=== PATIENT | female | born 1950 | race Caucasian/White ===

== ENCOUNTER → 2019-04-11 13:29 | Outpatient (POV) | payer MEDICARE, OTHER, SELFPAY | PROVIDERS: Visit Provider Dermatology | DX: Z00.00 Encounter for general adult medical examination without abnormal findings (principal) ==

== ENCOUNTER → 2019-05-02 14:28 | Outpatient (POV) | payer MEDICARE, OTHER, SELFPAY | PROVIDERS: Visit Provider Dermatology | DX: Z00.00 Encounter for general adult medical examination without abnormal findings (principal) ==

== ENCOUNTER → 2019-07-11 14:20 | Outpatient (POV) | payer MEDICARE, OTHER, SELFPAY | PROVIDERS: Visit Provider Dermatology | DX: Z00.00 Encounter for general adult medical examination without abnormal findings (principal) ==

== ENCOUNTER → 2020-04-09 10:55 | Outpatient (POV) | payer MEDICARE, OTHER, SELFPAY | PROVIDERS: PCP Family Medicine; Visit Provider Dermatology | DX: Z00.00 Encounter for general adult medical examination without abnormal findings (principal) ==

== ENCOUNTER → 2022-06-30 12:33 | Outpatient (POV) | payer MEDICARE, OTHER, SELFPAY | PROVIDERS: Visit Provider Dermatology | DX: Z00.00 Encounter for general adult medical examination without abnormal findings (principal) ==

== ENCOUNTER → 2022-09-18 15:00 | Outpatient (CLI) | payer MEDICARE, OTHER, SELFPAY ==
[2022-09-18 18:59] LABS: Alanine Aminotransferase 26 U/L (12-78); Albumin/Globulin Ratio 1.4 (1.1-1.8); Alkaline Phosphatase 104 U/L (38-126); Anion Gap 12.8 mEq/L (5-15); Aspartate Amino Transferase 43 U/L (14-36); Bilirubin,Total 0.8 mg/dl (0.2-1.3); Blood Urea Nitrogen 26 mg/dl (7-17); Calcium 8.2 mg/dl (8.4-10.2); Carbon Dioxide 30 mmol/L (22.0-30.0); Chloride 100 mmol/L (98-107); Estimated Glomerular Filt Rate 62 ml/min (>60); GFR (African American) 75 ML/MIN (>60); Globulin 2.8 g/dL (1.3-3.2); Glucose 208 mg/dl (74-100); Potassium 3.8 mmoL/L (3.5-5.1); Sodium 139 mmol/L (136-145); Total Protein,Serum 6.8 g/dl (6.3-8.2)
== END ==
PROVIDERS: PCP Family Medicine; Visit Provider Family Medicine
DX: E11.9 Type 2 diabetes mellitus without complications (principal); Z79.84 Long term (current) use of oral hypoglycemic drugs
CPT/HCPCS: 80053

== ENCOUNTER → 2022-09-25 14:14 | Outpatient (CLI) | payer MEDICARE, OTHER, SELFPAY ==
--- NOTE | 2022-09-25 14:14 | CT_ITS ---
FINAL REPORT TECHNIQUE: Axial images were obtained from the lung apex to the mid abdomen by computed tomography. This study was performed with techniques to keep radiation doses as low as reasonably achievable (ALARA). Individualized dose reduction techniques using automated exposure control or adjustment of mA and/or kV according to the patient's size were employed. CLINICAL HISTORY: lung cancer screening former smoker quit 17 years ago 1.5ppd when smoking FINDINGS: CHEST CT LOW DOSE CTDI vol (mGy): 2.90 DLP (mGy-cm): 80.73 There is no axillary adenopathy. There is no hilar or mediastinal adenopathy. There is severe coronary artery calcified plaque disease with prior CABG. The heart is normal in size. There is no pericardial or pleural effusion. Lung window images demonstrate no suspicious infiltrate or nodule. Limited images of the upper abdomen are unremarkable. IMPRESSION: Lung RADS category 1. Recommend 12 month follow-up low-dose chest CT. Reviewed, Interpreted and Dictated by Lorin Ortiz MD Transcribed by Windy Chery Authenticated and [facility]
== END ==
PROVIDERS: PCP Family Medicine; Visit Provider Family Medicine
DX: Z87.891 Personal history of nicotine dependence (principal); Z12.2 Encounter for screening for malignant neoplasm of respiratory organs
CPT/HCPCS: 71271

== ENCOUNTER → 2022-12-18 23:59 | Outpatient (CLI) | payer MEDICARE, OTHER, SELFPAY ==
[2022-12-18 19:16] LABS: Alanine Aminotransferase 26 U/L (12-78); Albumin Level 3.9 g/dl (3.5-5.0); Albumin/Globulin Ratio 1.4 (1.1-1.8); Alkaline Phosphatase 103 U/L (38-126); Anion Gap 10.9 mEq/L (5-15); Aspartate Amino Transferase 30 U/L (14-36); Blood Urea Nitrogen 18 mg/dl (7-17); Calcium 8.2 mg/dl (8.4-10.2); Carbon Dioxide 33 mmol/L (22.0-30.0); Chloride 96 mmol/L (98-107); Estimated Glomerular Filt Rate 71 ml/min (>60); GFR (African American) 85 ML/MIN (>60); Globulin 2.8 g/dL (1.3-3.2); Glucose 155 mg/dl (74-100); Potassium 3.9 mmoL/L (3.5-5.1); Sodium 136 mmol/L (136-145); Total Protein,Serum 6.7 g/dl (6.3-8.2)
== END ==
PROVIDERS: PCP Family Medicine; Visit Provider Family Medicine
DX: E11.9 Type 2 diabetes mellitus without complications (principal); E78.5 Hyperlipidemia, unspecified; Z79.84 Long term (current) use of oral hypoglycemic drugs
CPT/HCPCS: 80053; 84443

== ENCOUNTER 2025-03-13 10:57 | Outpatient (CLI) | payer MEDICARE, OTHER, SELFPAY ==
--- OUTSIDE RECORDS SUMMARY | 2025-01-18 13:30 | XMS_ITS | Encounter Summary ---
Author Organization [place] [address] Care Team Providers Care Marine Tower Operator Name Role Phone Christianne Angel Primary Care Provider [phone] Yogi Torres MD Unavailable [phone] Robert Renee MD Unavailable Unavailable Reason for Referral * Ultrasound (Routine) - Pending Review Specialty Diagnoses / Procedures Referred By Contac t Referred To Contact Radiology Diagnoses Post-menopausal bleeding Procedures US PELVIS AND TRANSVAGINAL NON OB COMPLETE Naz Iverson MD [address] [place] [address] Phone: tel: fax: Referral ID Status Reason Start Date Expiration Date V isits Requested Visits Authorized [id number] Pending Review 01/18/2025 01/18/2026 1 1 Reason for Visit * Reason Comments New Patient vaginal bleeding wit h pessary Encounter Details Date Type Department Care Team (Late st Contact Info) Description 01/18/2025 1:30 PM EDT Office Visit [facility] [address] [address] Naz Iverson MD [address] [place] [id number] Post-menopausal bleeding (Primary Dx); Vaginal erosion secondary to pessary use, initial encounter; Female cystocele Social History Tobacco Use Types Packs/Day Years Used Date Smoking Tobacco: Former Cigarettes Q uit: 03/15/2005 Smokeless Tobacco: Never Tobacco Cessation:Counseling Given: Not Answered Alcohol Use Standard Drinks/Week Comments No 0 (1 standard drink = 0.6 oz pur e alcohol) Comments No Sex and Gender Information Value Date Recorded Sex Assigned at Not on file Legal Sex Female 7:06 AM EDT Gender Identity Not on file Sexual Orientation Not on file documented as of this encounter Last Filed Vital Signs Vital Sign Reading Time Taken Comments Blood Pressure - - Pulse 67 01/18/2025 1:19 PM EDT Temperature - - Respiratory Rate - - Oxygen Saturation 98% 01/18/2025 1:19 PM EDT Inhaled Oxygen Concentration - - Weight 69.7 kg (153 lb 9.6 oz) 01/18/2025 1:19 P M EDT Height 154.9 cm (5' 1 ) 01/18/2025 1:19 PM EDT Body Mass Index 29.02 01/18/2025 1:19 PM EDT documented in this encounter Progress Notes * Naz Iverson MD - 01/18/2025 1:30 PM EDT Images from the original note were not included. New Patient Shena Le 1950 Assessment: Shena Le is a very pleasant 74 y.o. woman who presents today with: Post-menopausal bleeding Vaginal erosion Stage II Pelvic Organ Prolapse I reviewed with her my exam findings and discussed the options for management as follows: PMB Likely secondary to vaginal erosion noted on exam today, but cannot r/o uterine source as well - TVUS ordered to assess endometrial stripe Vaginal erosion Pessary holiday Will hold off on nightly estrogen due to her significant cardiac history. May consider initiating if erosion is still present at f/u Stage II POP Currently managed with #2 ring with support pessary. Due to erosion, likely will need to reduce size to #1 ring at f/u RTO in 2 weeks with Jessica Morris PA-C for repeat exam and pessary re-fitting Portions of this note were dictated and therefore may contain job superintendent errors. Patient's exam findings and plan of care were communicated with Christianne Angel. Thank you for allowing me to participate in this patient's care! Naz Iverson MD, FACOG, [facility] Division of Urogynecology and Pelvic Reconstructive Surgery [address] [place] [address] [email or web address] 01/18/25 1:54 PM HPI: Patient's Chief complaint in her own words: bleeding with pessary Patient is a 74 y.o. old female who is referred by for evaluation of incontinence and prolapse as aconsultation with Dr. Iverson today. Patient is on plavix for h/o bypass. Has been managing pessary at home, removing monthly. Recently has noticed increased discharge and light bleeding. Most recent A1c: Lab Results Component Value Date HGBA1C 7.2 (H) 05/11/2024 Bladder control problems: Do you leak urine with cough, sneeze, laugh or exercise? yes If you have the urge to pee, do you leak trying to get to the bathroom? no Do you have difficulty emptying bladder? no Prior treatments for leakage of urine: none Prolapse/vaginal support problems: Do you have the feeling of a vaginal bulge or pressure/heaviness in the vagina? yes Vaginal bleeding? yes has pessary in place Bowel Problem(s): Do you have constipation? no Do you have to push on the vagina to complete a bowel movement? no Do you leak stool? no Colonoscopy up to date? yes cologuard negative Sexual History: Are you sexually active? no Do you have pain with sex? N/A BARMAN History: Number of vaginal deliveries: 0 Of these, number delivered by forceps or vacuum: 0 Number of C-sections: 0 Have you ever had an abnormal Pap-smear? yes, cone biopsy Urology History: Both kidneys present: yes Both functioning: yes History of kidney stones: yes Gynecology-specific Surgical History: Hysterectomy: no Oophorectomy: no Salpingectomy (Fallopian tubes removed): no Prolapse surgery: no Vaginal surgery: Yes, cone biopsy Mesh placed: no Pertinent Medical/Family History: Personal or Family history of breast cancer? no If yes, who: na Personal or Family history of ovarian cancer? no If yes, who: na Personal or Family history of blood clotting disorder? no If yes, who: na Personal or family history of kidney/bladder cancer? no If yes, who: na Focused ROS Constitutional: denies fevers Vision: denies vision changes GI: denies nausea/vomiting : denies burning with urination Neuro: denies problems with balance or memory Past Medical History: has a past medical history of CAD (coronary artery disease), Diabetes mellitus (HCC), Hyperlipidemia, and Hypertension. Past Surgical History: has a past surgical history that includes Coronary artery bypass graft; Cardiac Catheterization; Upper gastrointestinal endoscopy; and Colonoscopy. Allergies: is allergic to imdur [isosorbide mononitrate] and codeine. Current Medications:has a current medication list which includes the following prescription(s): amlodipine, atorvastatin, carvedilol, cholecalciferol (vitamin d3), clopidogrel, coenzyme q10, cyclobenzaprine, fexofenadine, furosemide, glimepiride, hydrochlorothiazide, lisinopril, metformin, nitroglycerin, pantoprazole, cyanocobalamin, estradiol, and estriol (bulk). Social History: reports that she quit smoking about 19 years ago. Her smoking use included cigarettes. She has never used smokeless tobacco. She reports that she does not drink alcohol and does not use drugs. Family History: family history includes Heart Disease in her father and mother; High Blood Pressurein her father. Objective: Vitals: 01/18/25 1319 Pulse: 67 SpO2: 98% Weight: 153 lb 9.6 oz (69.7 kg) Height: 5' 1 (1.549 m) Physical Exam Constitutional: well-groomed, no distress Gastrointestinal: non-distended Extremities/Hematologic: Non-tender, no erythema or swelling Focused Neurologic Exam: Lumbo-Sacral: Sensory: normal Motor: normal Bulbocavernous reflex/Anal wink: Not Present Perineal sensation: normal A pelvic exam was conducted with the patient's consent. A Table Worker was present for the entire pelvic exam. Table Worker: Kanchan URIBE Pelvic Exam: External genitalia: normal external female genitalia Introitus: atrophic Urethra: normal Urethral hypermobility: Yes FIELD MANAGER negative Vagina: #2 ring with support pessary removed and cleaned. Atrophic vaginal mucosa, grade 2 erosion involving the posterior fornix and proximal posterior vaginal wall with minimal bleeding Uterus: Uterus midline, mobile, normal size Cervix: Poorly visualized, erosion appears to involve posterior lip of cervix Adnexae/Ovaries: Not palpable Labs/Imaging: Lab Results Component Value Date NA 140 11/17/2024 K 4.0 11/17/2024 CL 100 11/17/2024 CO2 30 (H) 11/17/2024 ANIONGAP 10 11/17/2024 CALCIUM 9.4 11/17/2024 GLU 124 (H) 11/17/2024 BUN 15 11/17/2024 CREATININE 0.82 11/17/2024 ALBUMIN 4.3 05/27/2022 PROT 7.2 05/27/2022 LABBILI 1.0 05/27/2022 AST 19 05/27/2022 ALT 20 05/27/2022 ALKPHOS 81 05/27/2022 GFRAFRAM 66 07/10/2021 GFRNONAFRAM 57 (L) 07/10/2021 No results found for this or any previous visit. No results found for this or any previous visit. No results found for this or any previous visit. No results found for this or any previous visit. No results found for this or any previous visit. documented in this encounter Plan of Treatment Upcoming Encounters Date Type Department Care Team (Late st Contact Info) Description 05/16/2025 2:00 PM EDT Office Visit [facility] [address] [address] Diandra Morris PA-C [address] [place] [address] 06/06/2025 1:45 PM EDT Office Visit [facility] [address] [place] [address] Yogi Torres MD [address] [place] [address] 07/11/2025 1:45 PM EDT Office Visit [facility] [address] [place] [id number] Josr Mohamud MD [address] [place], [place] [phone] Scheduled Orders Name Type Priority Associated Diagnoses Orde r Schedule US PELVIS AND TRANSVAGINAL NON OB COMPLETE Imaging Routine Post-menopausal bleeding 1 Occurrences starting 01/18/2025 until 01/18/2026 documented as of this encounter Visit Diagnoses Diagnosis Post-menopausal bleeding- Primary Postmenopausal bleeding Vaginal erosion secondary to pessary use, initial encounter Female cystocele Cystocele, midline documented in this encounter Care Teams Marine Tower Operator Relationship Specialty Start Date End Date Christianne Angel [address] [place], [place] [address]E [address] [place] [address] PCP - General 02/26/11 Yogi Torres MD [address] [place] [address] Physician Internal Medicine-Cardiovascular Disease 02/11/12 Robert Renee MD [address] [place] [address] Physician Internal Medicine-Gastroenterology 10/30/16 documented as of this encounter
--- OUTSIDE RECORDS SUMMARY | 2025-02-07 14:00 | XMS_ITS | Encounter Summary ---
Author Organization [place] [address] Care Team Providers Care Sugar Mixer Name Role Phone Christianne Angel Primary Care Provider Yogi Torres MD Unavailable [phone] Robert Renee MD Unavailable Unavailable Reason for Visit * Reason Comments Follow-up Encounter Details Date Type Department Care Team (Latest Contact Info) Description 02/07/2025 2:00 PM EDT Office Visit [facility] [address] [address] Diandra Morris PA-C [address] [place] [address] Female cystocele (Primary Dx); Pessary maintenance; Encounter for fitting and adjustment of pessary; Vaginal atrophy Social History Tobacco Use Types Packs/Day Years Used Date Smoking Tobacco: Former Cigarettes Q uit: 03/15/2005 Smokeless Tobacco: Never Alcohol Use Standard Drinks/Week Comments No 0 [...] Taken Comments Blood Pressure - - Pulse 68 02/07/2025 1:47 PM EDT Temperature - - Respiratory Rate - - Oxygen Saturation 99% 02/07/2025 1:47 PM EDT Inhaled Oxygen Concentration - - Weight 71.7 kg (158 lb) 02/07/2025 1:47 PM EDT Height - - Body Mass Index 29.85 01/18/2025 1:19 PM EDT documented in this encounter Progress Notes * Diandra Morris PA-C - 02/07/2025 2:00 PM EDT Images from the original note were not included. Diandra Morris PA-C Follow Up Note Shena Flanaganlueter 1950 Assessment: 74 y.o. female with 1. Female cystocele 2. Pessary maintenance 3. Encounter for fitting and adjustment of pessary 4. Vaginal atrophy Plan: 1) Stage 2 POP: We discussed the pathophysiology of pelvic organ prolapse and management options. Vaginal erosion improved on exam, but still mildly present. Okay to proceed with pessary replacement today (will downsize as Dr. Cabral recommended), but recommend more frequent pessary cleanings at home (ideally q 2 weeks and leave it out overnight) and potentially start vaginal estrogen cream if cleared by her process server. -Pessary re-fitting performed today: #1 ring with support placed Call if any issues with urination, bleeding, abnormal vaginal discharge, or pain Discussed proper maintenance/cleaning guidelines; information provided in AVS Patient plans to continue to clean/manage the device herself 2) Vulvo-vaginal atrophy: We discussed the benefits of topical vaginal estrogen for the treatment of vulvo-vaginal atrophy. -Recommend start vaginal estrogen cream to improve vaginal tissue quality but will wait until she clears this with her process server first 3) F/u in 3 months for PC (if tissue looks healthy, can proceed with q 1 year checks if she continues to clean her pessary at home) HPI: Shena Le is a 74 y.o. who is here for f/u s/p pessary holiday Patient had a #2 ring with support pessary removed at her last visit d/t a vaginal erosion seen on exam. She is hopeful to have the pessary replaced today. Past Medical History: Diagnosis Date CAD (coronary artery disease) Diabetes mellitus (HCC) Hyperlipidemia Hypertension Past Surgical History: Procedure Laterality Date CARDIAC CATHETERIZATION COLONOSCOPY CORONARY ARTERY BYPASS GRAFT UPPER GASTROINTESTINAL ENDOSCOPY Family History Problem Relation Age of Onset Heart Disease Mother High Blood Pressure Father Heart Disease Father Colon Cancer Neg Hx Esophageal Cancer Neg Hx Review of Systems: Genitourinary: Denies dysuria, vaginal discharge, vaginal bleeding Focused Physical Exam: Vitals: 02/07/25 1347 Pulse: 68 SpO2: 99% Pelvic Exam: Diet Counselor: Bryanna External genitalia: Normal Introitus: Atrophic Vagina: Atrophic, erosion improved but still present Time-Based Billing Statement: I spent 33 minutes in the care of this patient on this calendar day. Activities performed during this time include: Obtaining or reviewing history (separately obtained), Performing the appropriate exam, Counseling and educating, Referring and communicating with another professional, and Documenting clinical information in the EHR The total time documented above did not include the following activities which were also performed on this calendar day: Procedures [facility] [place] [address] 02/07/2025 4:05 PM * Diandra Morris PA-C - 02/07/2025 2:00 PM EDT Images from the original note were not included. Diandra Morris PA-C Procedure Note: Pessary Fitting Shena Le 1950 Indication: Stage 2 POP We discussed pessary management, insertion, and cleaning/removal guidelines. Patient plans to continue to clean/manage the device herself. She agreed to attempt pessary fitting today. Diet Counselor: Bryanna Procedure: -Vaginal exam performed -Pessary placed: #1 ring with support No expulsion with movement or valsalva Diandra Morris PA-C [facility] [place] [address] 02/07/25 4:05 PM documented in this encounter Miscellaneous Notes * Patient Instructions - Diandra Morris PA-C - 02/07/2025 2:00 PM EDT Images from the original note were not included. Pessary Instructions: This device is inserted to support your prolapse and help with the vaginal bulge/pressure feelings you experience. If you have elected not to manage/clean the device yourself, we recommend you return to our office every 3 months so that we can do this for you. If you have elected to manage/clean the device on your own, we recommend you clean the device ideally every one to two weeks. There are no data-driven standards for frequency of pessary removal and cleaning. Some women take it out every night and reinsert it the following morning. Find what works best for you! -Recommend you remove the pessary before sexual activity unless instructed differently. -Wash in mild soap, rinse thoroughly and air dry. -If the device comes out, reinsert it. This may happen with a bowel movement. Wash in mild soap andrinse well prior to putting it back in. -If the device is uncomfortable, take it out. You can reinsert it right away or leave it out for several hours. Remember to push the pessary back as far as you can get it - you cannot push it too far! -Use a small amount of water-based lubricant (such as KY jelly) to help with insertion. Call to be seen for any of the following: Bloody discharge when removing pessary Foul smelling vaginal discharge Continued irritation from the pessary If you have been instructed to use vaginal estrogen, please use it as directed (it is safe to insert it with the pessary in place). If you have any questions or concerns please call: [facility] Urogynecology Office For non-life threatening emergencies outside of normal business hours, please call the above numberand follow prompts for the flight reservations manager provider. documented in this encounter Plan of Treatment Upcoming Encounters Date Type Department Care Team (Late st Contact Info) Description 05/16/2025 2:00 PM EDT Office Visit [facility] [place] [address] [place] [address] Diandra Morris PA-C [address] [facility] [place] [address] 06/06/2025 1:45 PM EDT Office Visit [facility] [address] [place] [phone] Yogi Torres MD [address] [place] [address] [place] [address] 07/11/2025 1:45 PM EDT Office Visit [facility] [address] [address] Josr Mohamud MD [address] [place] [id number] documented as of this encounter Visit Diagnoses Diagnosis Female cystocele- Primary Cystocele, midline Pessary maintenance Fitting and adjustment of other device Encounter for fitting and adjustment of pessary Fitting and adjustment of other device Vaginal atrophy Postmenopausal atrophic vaginitis documented in this encounter Care Teams Sugar Mixer Relationship Specialty Start Date End Date Christianne Angel [address] [facility] [address] [place] [address] PCP - General 02/26/11 Yogi Torres MD [address] [place] [address] [place] [address] Physician Internal Medicine-Cardiovascular Disease 02/11/12 Robert Renee MD [address] [place] [address] [place] [address] Physician Internal Medicine-Gastroenterology 10/30/16 documented as of this encounter
[2025-03-13 18:38] LABS: Creatinine,Urine Random 94 mg/dL (Not Estab.); Microalbumin/Creatinine Ratio 8.8
[2025-03-13 18:54] LABS: Basophils % 0.1 % (0.1-2.0); Eosinophils # 0.1 Kmm3 (0.0-0.4); Eosinophils % 1.3 % (0.1-12.0); Hematocrit 36.3 % (37.0-47.0); Hemoglobin 11.2 g/dL (12.2-16.2); Immature Granulocytes # 0.02 10^3uL; Immature Granulocytes % 0.3 %; Lymphocytes # 2.3 K/mm3 (0.7-4.5); Mean Corpuscular HGB Conc 30.9 g/dL (31.8-35.4); Mean Corpuscular Hemoglobin 26.7 pg (27.0-31.2); Mean Corpuscular Volume 86.4 fl (81-99); Mean Platelet Volume 11.5 fl (7.4-10.4); Monocytes # 0.5 K/mm3 (0.1-1.0); Monocytes % 7.2 % (1.7-9.3); Neutrophils # 4.6 K/mm3 (1.8-7.8); Neutrophils % 61.1 % (37.0-80.0); Nucleated Red Blood Cells # 0 10^3/uL; Nucleated Red Blood Cells % 0 %; Platelet Count 223 K/mm3 (142-424); Red Cell Distribution Width 17.7 % (11.5-17.5); Red Cell Distribution Width-SD 55.6 fL; White Blood Count 7.5 K/mm3 (4.8-10.8)
[2025-03-13 20:02] LABS: Alanine Aminotransferase 19 U/L (12-78); Albumin Level 4.3 g/dl (3.5-5.0); Albumin/Globulin Ratio 1.5 (1.1-1.8); Alkaline Phosphatase 91 U/L (38-126); Anion Gap 14.4 mEq/L (5-15); Aspartate Amino Transferase 24 U/L (14-36); Bilirubin,Total 1.1 mg/dl (0.2-1.3); Blood Urea Nitrogen 26 mg/dl (7-17); Calcium 9.8 mg/dl (8.4-10.2); Carbon Dioxide 29 mmol/L (22.0-30.0); Chloride 96 mmol/L (98-107); Chol/HDL Ratio 2.9 (1-3.5); Cholesterol 141 mg/dl (140-200); Estimated Glomerular Filt Rate 61 ml/min (>60); GFR (African American) 74 ML/MIN (>60); Globulin 2.9 g/dL (1.3-3.2); Glucose 96 mg/dl (74-100); HDL Cholesterol 49 mg/dl (40-60); Potassium 4.4 mmoL/L (3.5-5.1); Sodium 135 mmol/L (136-145); Total Protein,Serum 7.2 g/dl (6.3-8.2); Triglycerides 90 mg/dl (30-150); VLDL Cholesterol 18 mg/dL (0-40)
[2025-03-13 20:13] LABS: Direct LDL Cholesterol 60.21 mg/dL (100-129)
[2025-03-13 20:34] LABS: Thyroid Stimulating Hormone 0.25 uIU/mL (0.465-4.68)
[2025-03-13 20:44] LABS: HIV Combo NEGATIVE (Negative)
[2025-03-13 20:50] LABS: Hepatitis C Ab Qual. W/ RFX NEGATIVE (Negative)
[2025-03-13 20:53] LABS: Vitamin B12 327 pg/mL (239-931)
--- OUTSIDE RECORDS SUMMARY | 2025-03-14 12:39 | XMS_ITS | Encounter Summary ---
Author Organization [place] [address] Care Team Providers Care Cylinder Press Operator Name Role Phone Christianne Angel Primary Care Provider Yogi Torres MD Unavailable [phone] Robert Renee MD Unavailable Unavailable Encounter Details Date Type Department Care Team (Late st Contact Info) Description 09/03/2010 Orders Only [facility] [place] [address] [address] [place] [address] Kailee Niño MD [address] [place] [address] Social History Tobacco Use Types Packs/Day Years Used Date Smoking Tobacco: Never Assessed Comments Unknown Sex and Gender Information Value Date Recorded Sex Assigned at Not on file Legal Sex Female 7:06 AM EDT Gender Identity Not on file Sexual Orientation Not on file documented as of this encounter Plan of Treatment Upcoming Encounters Date Type Department Care Team (Late st Contact Info) Description 05/16/2025 2:00 PM EDT Office Visit [facility] [place] [address] [place] [address] Diandra Morris PA-C [address] [place] [address] 06/06/2025 1:45 PM EDT Office Visit [facility] [address] [place] [address] Yogi Torres MD [address] [place] [address] [place] [address] 07/11/2025 1:45 PM EDT Office Visit [facility] [address] [place] [address] Josr Mohamud MD [address] [place], [place] [phone] documented as of this encounter Procedures Procedure Name Priority Date/Time Associated Diagnosis Comments ECHO - HISTORICAL Routine 09/03/2010 12: 00 AM EST documented in this encounter Results * ECHO - HISTORICAL (09/03/2010 12:00 AM EST) Anatomical Region Laterality Modality Other 09/03/2010 Narrative 09/23/2011 1:52 AM EST NOTICE: This report was electronically copied on 11/06/2011 from historical data generated by a practice prior to that practice using [facility] for Medical Records. Performing Provider: ELOY Kailee Oviedo MD IMG ECHO ORDERABLES Margaret l Result documented in this encounter Visit Diagnoses Not on filedocumented in this encounter Care Teams Cylinder Press Operator Relationship Specialty Start Date End Date Christianne Angel [address] [place] [address] [address] [facility] [place] [address] PCP - General 02/26/11 Yogi Torres MD [address] [place] [address] [place] [address] Physician Internal Medicine-Cardiovascular Disease 02/11/12 Robert Renee MD [address] [place] [address] [place] [address] Physician Internal Medicine-Gastroenterology 10/30/16 documented as of this encounter
--- OUTSIDE RECORDS SUMMARY | 2025-03-14 12:39 | XMS_ITS | Encounter Summary ---
Author Organization [place] [address] Care Team Providers Care Thermodynamic Physicist Name Role Phone Christianne Angel Primary Care Provider Yogi Torres MD Unavailable [phone] Robert Renee MD Unavailable Unavailable Encounter Details Date Type Department Care Team (Late st Contact Info) Description 09/03/2010 Orders Only [facility] [place] [facility] [address] [place] [address] Kailee Niño MD [address] [place] [address] Social History Tobacco Use Types [...] 2:00 PM EDT Office Visit [facility] [place] [address] [place] [address] Diandra Morris PA-C [address] [place] [address] 06/06/2025 1:45 PM EDT Office Visit [facility] [address] [place] [address] Yogi Torres MD [address] [place] [address] [place] [address] 07/11/2025 1:45 PM EDT Office Visit [facility] [address] [place] [address] Josr Mohamud MD [address] [place], [place] [phone] documented as of this encounter Procedures Procedure Name Priority Date/Time Associated Diagnosis Comments VASCULAR STUDY - HISTORICAL Routine 09/03/2010 12:00 AM EST documented in this encounter Results * VASCULAR STUDY - HISTORICAL (09/03/2010 12:00 AM EST) Anatomical Region Laterality Modality Other 09/03/2010 Narrative 09/23/2011 1:52 AM EST NOTICE: This report was electronically copied on 11/07/2011 from historical data generated by a practice prior to that practice using [facility] for Medical Records. Performing Provider: ELOY Kailee Oviedo MD [place] VASCULAR ORDERABLES Final Result documented in this encounter Visit Diagnoses Not on filedocumented in this encounter Care Teams Thermodynamic Physicist Relationship Specialty Start Date End Date Christianne Angel [address] [place] [address] [address] [facility] [place] [address] PCP - General 02/26/11 Yogi Torres MD [address] [place] [address] [place] [address] Physician Internal Medicine-Cardiovascular Disease 02/11/12 Robert Renee MD [address] [place] [address] [place] [address] Physician Internal Medicine-Gastroenterology 10/30/16 documented as of this encounter
--- OUTSIDE RECORDS SUMMARY | 2025-03-14 12:39 | XMS_ITS | Referral Summary ---
Author Organization [facility] Address [address] [facility] [place] [address] Care Team Providers Care Bag Adjuster Name Role Phone Negrito Angel Primary Care Provider [phone] Allergies Active Allergy Reactions Criticality Noted Date Comments Povidone Iodine Rash 11/13/2015 Codeine Nausea And Vomiting 11/13/2015 Medications metFORMIN (GLUCOPHAGE) 500 MG TABS Take 500 mg by mouth 2 (two) times daily with meals. Active hydrochlorothia zide (HYDRODIURIL) 25 MG TABS Take 25 mg by mouth daily. Active clopidogrel (PLAVIX) 75 MG TABS Take 75 mg by mouth daily. Active furosemide (LASIX) 20 MG TABS Take 20 mg by mouth 2 (two) times daily. Active nitroGLYCERIN (NITROSTAT) 0.4 MG SUBL 0.4 mg by Sublingual route every 5 (five) minutes as needed. Active hydrALAZINE (APRESOLINE) 25 MG TABS Take 25 mg by mouth 2 (two) times daily. Active aspirin 81 MG TBEC Take 81 mg by mouth daily. Active omeprazole (PRILOSEC) 10 MG CPDR Take 20 mg by mouth. Active vitamin D (CHOLECALCIFERO L) 500 UNIT TABS Take 400 Units by mouth daily. Active isosorbide dinitrate (ISORDIL) 30 MG TABS Take 20 mg by mouth 3 (three) times daily. Active co-enzyme Q-10 50 MG CAPS Take 100 mg by mouth daily. Active fexofenadine (ABIGAIL) 180 MG TABS Take 180 mg by mouth daily. Active amoxicillin (AMOXIL) 500 MG CAPS Take 500 mg by mouth every 6 (six) hours. Active Active Problems Problem Noted Date Diagnosed Date Trigger finger of right thum b - RT THUMB A1 BOBBY REL (12-05-15), STAGE I - FULL W/ EFFORT 11/14/2015 Trigger ring finger of right hand - RT RF A1 BOBBY REL (12-05-15), STAGE II - FULL W/ EFFORT 11/14/2015 Social History Tobacco Use Types Packs/Day Years Used Date Smoking Tobacco: Former Smokeless Tobacco: Never Alcohol Use Standard Drinks/Week Comments No 0 (1 standard drink = 0.6 oz pur e alcohol) Comments No Sex and Gender Information Value Date Recorded Sex Assigned at Not on file Legal Sex Female 11:26 AM EST Gender Identity Not on file Sexual Orientation Not on file Occupation Industry Job Start Date Job End Date RETIRED Not on file Not on file Not on file Last Filed Vital Signs Vital Sign Reading Time Taken Comments Blood Pressure 136/67 12/05/2015 11:03 AM EDT Pulse 70 12/05/2015 11:03 AM EDT Temperature 36.7 C (98.1 F) 12/05/2015 8:41 AM EDT Respiratory Rate 18 12/05/2015 11:03 AM EDT Oxygen Saturation 100% 12/05/2015 11:03 AM EDT Inhaled Oxygen Concentration - - Weight 77.1 kg (170 lb) 12/25/2015 10:50 AM EDT Height 154.9 cm (5' 1 ) 12/25/2015 10:50 AM EDT Body Mass Index 32.12 12/25/2015 10:50 AM EDT Functional Status * Are you blind or do you have serious difficulty seeing, even when wearing glasses? Answer Date of Assessment Author No 12/03/2015 9:47 AM EDT Hoa Flores Registered Nurse Mental Status * Because of a physical, mental, or emotional condition, do you have serious difficulty concentrating, remembering, or making decisions? (5 years old or older) Answer Entry Date Author No 12/03/2015 9:47 AM EDT Hoa Flores Registered Nurse Plan of Treatment Not on file Insurance [facility] [place] [address] MEDICARE on file Care Teams Bag Adjuster Relationship Specialty Start Date End Date Negrito Angel [address] [place] [address] PCP - General 11/13/15
--- OUTSIDE RECORDS SUMMARY | 2025-03-14 12:39 | XMS_ITS | Clinical Summary ---
Author Organization [employer] [facility] Address [address] [place] [phone] Phone Care Team Providers Care Wireless Retail Manager Name Role Phone Unavailable Unavailable Conditions or Problems No information available. Medications No information available. Medications Administered No information available. Allergies, Adverse Reactions, Alerts No information available. Results No information available. Plan of Care No information available. Procedures No information available. Vital Signs No information available. Immunizations No information available. Advance Directives No information available.
--- OUTSIDE RECORDS SUMMARY | 2025-03-14 12:39 | XMS_ITS | Encounter Summary ---
Author Organization [place] [address] Care Team Providers Care Glass Ribbon Machine Operator Name Role Phone Christianne Angel Primary Care Provider Yogi Torres MD Unavailable [phone] Robert Renee MD Unavailable Unavailable Encounter Details Date Type Department Care Team (Late st Contact Info) Description 05/23/2009 Orders Only [facility] [place] [address] [place] [address] Rubio Valdovinos MD [address] [place] [address] Social History Tobacco Use Types Packs/Day Years [...] 2:00 PM EDT Office Visit [facility] [place] [address] [place] [address] Diandra Morris PA-C [address] [place] [address] 06/06/2025 1:45 PM EDT Office Visit [facility] [place] [address] [place] [id number] Yogi Torres MD [address] [place] [address] 07/11/2025 1:45 PM EDT Office Visit [facility] [address] [place] [id number] Josr Mohamud MD [address] [place], [place] [phone] documented as of this encounter Procedures Procedure Name Priority Date/Time Associated Diagnosis Comments VASCULAR STUDY - HISTORICAL Routine 05/23/2009 12:00 AM EDT documented in this encounter Results * VASCULAR STUDY - HISTORICAL (05/23/2009 12:00 AM EDT) Anatomical Region Laterality Modality Other 05/23/2009 Narrative 09/23/2011 12:25 PM EST NOTICE: This report was electronically copied on 11/07/2011 from historical data generated by a practice prior to that practice using [facility] [employer] for Medical Records. Performing Provider: KATRIN Rubio Valdovinos MD IMG VASCULAR ORDERABLES Final Re sult documented in this encounter Visit Diagnoses Not on filedocumented in this encounter Care Teams Glass Ribbon Machine Operator Relationship Specialty Start Date End Date Christianne Angel [address] [place] [id number] [address] [facility] [place] [address] PCP - General 02/26/11 Yogi Torres MD [address] [place] [address] [place] [address] Physician Internal Medicine-Cardiovascular Disease 02/11/12 Robert Renee MD [address] [place] [address] [place] [address] Physician Internal Medicine-Gastroenterology 10/30/16 documented as of this encounter
--- OUTSIDE RECORDS SUMMARY | 2025-03-14 12:39 | XMS_ITS | Encounter Summary ---
Author Organization [place] [address] Care Team Providers Care Oracle Database Administrator Name Role Phone Christianne Angel Primary Care Provider Yogi Torres MD Unavailable [phone] Robert Renee MD Unavailable Unavailable Encounter Details Date Type Department Care Team (Late st Contact Info) Description 04/23/2008 Orders Only [facility] [place] [address] [place] [address] Myron Onofre MD [address] [address] Social History Tobacco Use Types Packs/Day Years [...] 2:00 PM EDT Office Visit [facility] [place] [address] [place] [address] Diandra Morris PA-C [address] [place] [address] 06/06/2025 1:45 PM EDT Office Visit [facility] [address] [place] [address] Yogi Torres MD [address] [place] [address] [place] [address] 07/11/2025 1:45 PM EDT Office Visit [facility] [address] [place] [address] Josr Mohamud MD [address] [place] [address] documented as of this encounter Procedures Procedure Name Priority Date/Time Associated Diagnosis Comments VASCULAR STUDY - HISTORICAL Routine 04/23/2008 12:00 AM EDT documented in this encounter Results * VASCULAR STUDY - HISTORICAL (04/23/2008 12:00 AM EDT) Anatomical Region Laterality Modality Other 04/23/2008 Narrative 09/23/2011 12:34 PM EST NOTICE: This report was electronically copied on 11/06/2011 from historical data generated by a practice prior to that practice using [facility] [employer] for Medical Records. Performing Provider: MARY GRACE Myron Onofre MD IMG VASCULAR ORDERABLES Final Result documented in this encounter Visit Diagnoses Not on filedocumented in this encounter Care Teams Oracle Database Administrator Relationship Specialty Start Date End Date Christianne Angel [facility] [address] [place] [address] PCP - General 02/26/11 Yogi Torres MD [address] [place] [address] [place] [address] Physician Internal Medicine-Cardiovascular Disease 02/11/12 Robert Renee MD [address] [place] [address] [place] [address] Physician Internal Medicine-Gastroenterology 10/30/16 documented as of this encounter
--- OUTSIDE RECORDS SUMMARY | 2025-03-14 12:40 | XMS_ITS | Encounter Summary ---
Author Organization [place] [address] Care Team Providers Care Certified Endoscopy Technician Name Role Phone Christianne Angel Primary Care Provider Yogi Torres MD Unavailable [phone] Robert Renee MD Unavailable Unavailable Reason for Visit * Reason Onset Date Comments Medication Question 02/19/2025 Encounter Details Date Type Department Care Team (Late st Contact Info) Description 02/19/2025 Telephone [facility] [address] [address] Yogi Torres MD [address] [place] [id number] Medication Question Social History Tobacco Use Types Packs/Day Years [...] on file documented as of this encounter Miscellaneous Notes * Telephone Encounter - Judith Camara CMA - 02/19/2025 10:17 AM EDT Reviewed most recent OV note, per note Increase Norvasc 5mg daily Corrected sig on medication yogesh-sent to pharmacy. * Telephone Encounter - Rubi Jaquez - 02/19/2025 10:09 AM EDT Pharmacy calling with clarification needed on Amlodipine directions. Please call and advise. documented in this encounter Plan of Treatment Upcoming Encounters Date Type Department Care Team (Late st Contact Info) Description 05/16/2025 2:00 PM EDT Office Visit [facility] [place] [address] [place] [address] Diandra Morris PA-C [address] [place] [address] 06/06/2025 1:45 PM EDT Office Visit [facility] [address] [place] [address] Yogi Torres MD [address] [place] [address] [place] [address] 07/11/2025 1:45 PM EDT Office Visit [facility] [address] [address] Josr Mohamud MD [address] [id number] documented as of this encounter Visit Diagnoses Not on filedocumented in this encounter Care Teams Certified Endoscopy Technician Relationship Specialty Start Date End Date Christianne Angel [address] [facility] [address] [place] [address] PCP - General 02/26/11 Yogi Torres MD [address] [place] [address] [place] [address] Physician Internal Medicine-Cardiovascular Disease 02/11/12 Robert Renee MD [address] [place] [address] [address] [place], [place] [address] Physician Internal Medicine-Gastroenterology 10/30/16 documented as of this encounter
--- OUTSIDE RECORDS SUMMARY | 2025-03-14 12:40 | XMS_ITS | Clinical Summary ---
Author Organization [facility] [place]/ [place] Address [address] [place] [address] Phone Care Team Providers Care Power Systems Engineer Name Role Phone Christianne Angel Primary Care Provider [phone] Yogi Torres MD Unavailable [phone] Robert Renee MD Unavailable Unavailable Allergies Active Allergy Reactions Criticality Noted Date Comments Codeine Nausea And Vomiting Low 11/13/2015 Isosorbide Mononitrate Other (See Comments) High Patient states caused severe headaches Medications metFORMIN (GLUCOPHAGE) 500 mg tablet Take 1,000 mg by mouth 2 times daily. Two to three times daily. Active nitroGLYCERIN (NITROSTAT) 0.[address] under the tongue every 5 minutes as needed. Active Coenzyme Q10 100 mg Oral Capsule Take by mouth daily. Active Cholecalciferol , Vitamin D3, 2,000 unit Oral Capsule Take by mouth. Activ e fexofenadine (ABIGAIL) 60 mg Oral Tablet Take 180 mg by mouth daily. Active GLIMEPIRIDE ORAL Take 2 mg by mouth 2 times daily. Active pantoprazole (PROTONIX) 40 mg Oral Tablet, Delayed Release (E.C.) Take by mouth daily. Active clopidogreL (PLAVIX) 75 mg Oral Tablet Take 1 Tab by mouth daily. 30 Tab 6 12/01/19 20 Active atorvastatin (LIPITOR) 80 mg Oral Tablet Take 1 Tab by mouth nightly. 30 Tab 6 12/01/19 20 Active estradioL (ESTRACE) 0.01 % (0.1 mg/gram) Vagl Cream Place 1 g vaginally daily. Do NOT use applicator. Apply fingertip amount to affected area nightly x 2 weeks then use 2-3 x per week. 42.5 g 03/14/20 20 Active Additional Information Patient not taking.Reported on 11/03/2023 fUROsemide (LASIX) 20 mg Oral Tablet TAKE 1 TAB BY MOUTH 2 TIMES DAILY NEEDED. 180 Tab 2 10/28/19 21 Active Additional Information Patient taking differently:20 mg OralDAILY, Reason: per pt, Reported on 02/07/2025 cyanocobalamin 1,000 mcg Oral Tablet Take 1,000 mcg by mouth daily. Active Estriol, Bulk, 100 % Misc PowderIndicatio ns:Vaginal atrophy Estriol 0.5 mg per gram. Use 1 gram of cream per vagina at night x 14 days, then twice per week. 30 gm tube. 30 g 5 12/18/19 22 Active Additional Information Patient not taking.Reported on 11/03/2023 hydroCHLOROthia zide 25 mg Oral Tablet TAKE 1 TABLET BY MOUTH EVERY DAY 100 Tablet 2 09/02/20 24 Active carvediloL (COREG) 12.5 mg Oral TabletIndicatio ns:Essential hypertension Take 1 Tablet by mouth 2 times daily. 180 Tablet 1 12/12/19 25 Active lisinopriL (PRINIVIL;ZESTR IL) 40 mg Oral Tablet TAKE 1 TABLET BY MOUTH EVERY DAY 100 Tablet 2 12/23/19 25 Active cyclobenzaprine (FLEXERIL) 10 mg Oral Tablet take 1 tablet by mouth three times a day as needed for muscle spasm 12/14/19 25 Active estradioL (ESTRACE) 0.01 % (0.1 mg/gram) Vagl CreamIndication s:Vaginal atrophy Apply pea-sized amount using fingertip into the vagina (or as instructed) nightly x 2 weeks, then use 2-3 x per week. 42.5 g 2 02/10/20 25 Active amLODIPine (NORVASC) 5 mg Oral TabletIndicatio ns:Coronary artery disease involving [place] coronary artery of [place] shosh[place] heart without angina pectoris,Essent ial hypertension Take 1 Tablet by mouth daily. 90 Tablet 1 02/20/20 25 Active amLODIPine (NORVASC) 5 mg Oral TabletIndicatio ns:Coronary artery disease involving [place] coronary artery of [place] shosh[place] heart without angina pectoris,Essent ial hypertension Take 1 Tablet by mouth daily. 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 Overview (06/28/2020): Added automatically from request for surgery [id number] Prolapse of posterior vaginal wall 06/28/2020 Overview (06/28/2020): Added automatically from request for surgery [id number] Urine frequency 06/28/2020 Overview (06/28/2020): Added automatically from request for surgery [id number] CAD (coronary artery disease) Assessment & Plan (11/29/2024 1:16 PM EDT): Hyperlipidemia Assessment & Plan (11/29/2024 1:16 PM EDT): Hypertension Diabetes mellitus Encounters Date Type Department Care Team Description 03/13/2025 Refill [facility] [address] [id number] Yogi Torres MD Medication Refill 02/19/2025 Orders Only [facility] [address] [id number] Judith Camara CMA Coronary artery disease involving [place] coronary artery of [place] shoshone heart without angina pectoris; Essential hypertension 02/19/2025 Telephone [facility] [place] [address] [place] [address] Yogi Torres MD Medication Question 02/18/2025 Refill [facility] [address] [place] [address] Yogi Torres MD Medication Refill 02/08/2025 Telephone [facility] [address] [address] Yogi Torres MD Patient Question 02/07/2025 2:00 PM EDT Office Visit [facility] [address] [address] Diandra Morris PA-C Female cystocele (Primary Dx); Pessary maintenance; Encounter for fitting and adjustment of pessary; Vaginal atrophy 01/18/2025 1:30 PM EDT Office Visit [facility] [place] [address] [address] Naz Iverson MD Post-menopausal bleeding (Primary Dx); Vaginal erosion secondary to pessary use, initial encounter; Female cystocele 01/05/2025 2:30 PM EDT Office Visit [facility] [address] [place] [address] Josr Mohamud MD Right shoulder pain, unspecified chronicity (Primary Dx); Impingement syndrome of right shoulder 01/05/2025 2:10 PM EDT Ancillary Procedure [facility] [address] [place] [address] [id number] Josr Mohamud MD Right shoulder pain, unspecified chronicity 12/22/2024 Refill [facility] [id number] Yogi Torres MD Medication Refill from Last 3 Months Surgical History Surgery Date Site/Laterality Comments CORONARY ARTERY BYPASS GRAFT CARDIAC CATHETERIZATION UPPER GASTROINTESTINAL ENDOSCOPY COLONOSCOPY Medical History Medical History Date Comments CAD (coronary artery disease) Hyperlipidemia Hypertension Diabetes mellitus (HCC) Family History Medical History Relation Name Comments Heart Disease Father High Blood Pressure Father Heart Disease Mother Colon Cancer Neg Hx Esophageal Cancer Neg Hx Relation Name Status Comments Father (Age 56) Mother Alive Social History Tobacco Use Types Packs/Day Years [...] on file Sexual Orientation Not on file Obstetrics History Last Filed Vital Signs Vital Sign Reading Time Taken Comments Blood Pressure 130/84 11/29/2024 1:02 PM EDT Pulse 68 02/07/2025 1:47 PM EDT Temperature 36.8 C (98.2 F) 01/27/2021 12:55 PM EDT Respiratory Rate 14 07/06/2014 11:00 AM EDT Oxygen Saturation 99% 02/07/2025 1:47 PM EDT Inhaled Oxygen Concentration - - Weight 71.7 kg (158 lb) 02/07/2025 1:47 PM EDT Height 154.9 cm (5' 1 ) 01/18/2025 1:19 PM EDT Body Mass Index 29.85 01/18/2025 1:19 PM EDT Plan of Treatment Upcoming Encounters Date Type Department Care Team (Late st Contact Info) Description 05/16/2025 2:00 PM EDT Office Visit [facility] [address] [address] Daindra Morris PA-C [address] [place], [place] [id number] 06/06/2025 1:45 PM EDT Office Visit [facility] [address] [place] [address] Yogi Torres MD [address] [place], [place] [id number] 07/11/2025 1:45 PM EDT Office Visit [facility] [address] [address] Josr Mohamud MD [address] [address] Health Maintenance Due Date Last Done Comments Wellness Exam Medicare 1953 Kidney Health: uACR 1960 Diabetic Eye Exam 1968 Hepatitis C Screening 1968 DTaP/TDaP/Td (1 - Tdap) 1969 Breast Cancer Screening 1990 Cologuard 1995 Colon Cancer Screening 1995 Colonoscopy 1995 FIT 1995 Sigmoidoscopy 1995 Virtual Colonography 1995 Bone Density Screening 2015 Pneumococcal Vaccine 50+ (2 of 2 - PPSV23, PCV20, or PCV21) 01/26/2019 12/01/2018 COVID-19 Vaccine ( season) 2024 02/19/2021, 01/22/2021 Hemoglobin A1c 11/11/2024 05/11/2024, 09/0 01/2023, 05/27/2022, Additional history exists Influenza Vaccine (Season Ended) 2025 05/08/2023, 07/22/2022, 11/27/2019, Additional history exists Kidney Health: eGFR 11/17/2025 11/17/2024, 05/11/2024, 05/25/2023, Additional history exists Lipids 11/17/2025 11/17/2024, 04/21, 05/25/2023, Additional history exists Zoster Completed 08/21/2023, 05/08/2023 Hepatitis B Vaccine Aged Out No longe r eligible based on patient's age to complete this topic Meningococcal B Vaccine Aged Out No l onger eligible based on patient's age to complete this topic Procedures Procedure Name Priority Date/Time Associated Diagnosis Comments NH ARTHROCENTESIS ASPIR&/INJ MAJOR JT/BURSA W/O US Routine 01/05/2025 2:30 PM EDT Impingement syndrome of right shoulder XR SHOULDER RIGHT 3 VIEWS Routine 01/05/2025 2:21 PM EDT Right shoulder pain, unspecified chronicity BASIC METABOLIC PANEL Routine 11/17/2024 9:13 AM EST Coronary artery disease involving [place] coronary artery of [place]osh[place] heart without angina pectoris Essential hypertension Hyperlipidemia, unspecified hyperlipidemia type Claudication LIPID PANEL REFLEX Routine 11/17/2024 9: 13 AM EST Coronary artery disease involving [place] coronary artery of [place] heart without angina pectoris Essential hypertension Hyperlipidemia, unspecified hyperlipidemia type Claudication HEMOGLOBIN A1C Routine 05/11/2024 10:23 AM EDT Coronary artery disease involving [place] coronary artery of [place] heart without angina pectoris Essential hypertension Peripheral arterial disease Hyperlipidemia, unspecified hyperlipidemia type Other specified diabetes mellitus with other specified complication, unspecified whether mcfp insulin use (HCC) from Last 3 Months or Most Recently Relevant to Health Maintenance Results * NH ARTHROCENTESIS ASPIR&/INJ MAJOR JT/BURSA W/O US (01/05/2025 2:30 PM EDT) Narrative [facility] - 01/05/2025 2:30 PM EDT Donna Cruz NA 01/05/2025 3:10 PM Large Joint Injection/Arthrocentesis: R glenohumeral on 01/05/2025 2:30 PM Indications: pain Details: 22 G needle Medications: 3 mL BUPivacaine HCl 0.25 % (2.5 mg/mL); 40 mg triamcinolone acetonide 40 mg/mL Outcome: tolerated well, no immediate complications Procedure, treatment alternatives, risks and benefits explained, specific risks discussed. Consent was given by the patient. Immediately prior to procedure a time out was called to verify the correct patient, procedure, equipment, product support specialist and site/side marked as required. Patient was prepped and draped in the usual sterile fashion. us Josr Mohamud MD PROCEDURE/MINOR SURGICAL ORDERA BLES Final Result [facility] * XR SHOULDER RIGHT 3 VIEWS (01/05/2025 2:21 PM EDT) Narrative Lavelle Olmedo - 01/05/2025 2:21 PM EDT Please see physician's note from office encounter for x-ray imaging result us Josr Mohamud MD IMG DIAGNOSTIC IMAGING ORDERABL ES Final Result * LIPID PANEL REFLEX (11/17/2024 9:13 AM EST) Cholesterol 128 <200 mg/dL 11/17/2024 11:54 AM EST [facility] Comment: < 200 Desirable 200 - 239 Borderline High >= 240 High Triglyceride 53 <150 mg/dL 11/17/2024 11:54 AM EST [facility] Comment: < 150 Normal 150 - 199 Borderline High 200 - 499 High >= 500 Very High HDL 53 >=40 mg/dL 11/17/2024 11:54 AM EST [facility] Comment: > 60 Optimal 40 - 60 Acceptable < 40 Low LDL Calculated 63 <100 mg/dL 11/17/2024 11:54 AM EST [facility] Comment: < 100 Optimal 100 - 129 Near or above optimal 130 - 159 Borderline High 160 - 189 High >= 190 Very High The National Institutes of Health (NIH) equation is used for all lipid panels that report calculated LDL (LDL-C). Non-HDL-C Calculated 75 <=129 mg/dL 11/17/2024 11:54 AM EST [facility] Comment: <130 Desirable 130-159 Above Desirable 160-189 Borderline High 190-219 High >= 220 Very High Fasting Specimen? Yes None 025 11:54 AM EST [facility] Blood VENOUS BLOOD / Unknown Venipuncture / Unknown 11/17/2024 9:13 AM EST 11/17/2024 9:18 AM EST us Yogi Torres MD CHEMISTRY ORDERABLES Final Resu lt [facility] [address] [facility], [place] [address] [facility] [address] [place] [address] * (ABNORMAL) BASIC METABOLIC PANEL (11/17/2024 9:13 AM EST) Sodium 140 136 - 145 mmol/L 11/17/2024 11:54 AM EST [facility] Potassium 4.0 3.5 - 5.0 mmol/L 11/17/2024 11:54 AM EST [facility] Chloride 100 98 - 107 mmol/L 11/17/2024 11:54 AM EST [facility] Total CO2 30(H) 22 - 29 mmol/L 11/17/2024 11:54 AM EST [facility] Anion Gap 10 7 - 16 mmol/L 11/17/2024 11:54 AM EST [facility] Calcium 9.4 8.8 - 10.4 mg/dL 11/17/2024 11:54 AM EST [facility] Glucose Lvl 124(H) 70 - 99 mg/dL 11/17/2024 11:54 AM EST [facility], [facility] BUN 15 8 - 23 mg/dL 11/17/2024 11:54 AM EST [facility], [facility] Creatinine 0.82 0.51 - 1.30 mg/dL 11/17/2024 11:54 AM EST [facility], [facility] eGFR (CKD-EPIcr 2020) 75 >=60 mL/min/1.7 3 m2 11/17/2024 11:54 AM EST [facility] Comment:Estimated GFR was ca lculated using the CKD-EPIcr (2020) equation refit without race. The equation is recommended by the National Kidney Foundation - [place] Society of Nephrology Task Force. Blood VENOUS BLOOD / Unknown Venipuncture / Unknown 11/17/2024 9:13 AM EST 11/17/2024 9:18 AM EST us Yogi Torres MD CHEMISTRY ORDERABLES Final Resu lt [facility] [address] [facility] , [address] [place] [id number] * (ABNORMAL) HEMOGLOBIN A1C (05/11/2024 10:23 AM EDT) Hgb A1C 7.2(H) 4.2 - 5.6 % 05/11/2024 4:30 PM EDT [facility] Est. Avg Glucose 160 mg/dL 05/11/2024 4:30 PM EDT [facility] Blood VENOUS BLOOD / Unknown Venipuncture / Unknown 05/11/2024 10:23 AM EDT 05/11/2024 10:23 AM EDT Narrative [facility] - 05/11/2024 4:30 PM EDT REFERENCE RANGE: Normal: 4.0-5.6% Pre-diabetes: 5.7-6.4% Provisional diagnosis of diabetes: >6.4% Hgb F>10% and anything which shortens red cell survival, such as hemolytic anemia, or unstable hemoglobin variants such as HbSS, HbSC, or HbCC, will lower the HbA1c value associated with a given level of glycemic control. Yogi Torres MD CHEMISTRY ORDERABLES Final Resu lt [facility] [address] [facility], [place] [address] [facility] 1 [place] [address] from Last 3 Months or Most Recently Relevant to Health Maintenance [place] B Care Teams Power Systems Engineer Relationship Specialty Start Date End Date Christianne Angel [address] [place] [id number] PCP - General 02/26/11 Yogi Torres MD 1 [facility] [place] [address] Physician Internal Medicine-Cardiovascular Disease 02/11/12 Robert Renee MD 1 [facility] [place] [address] Physician Internal Medicine-Gastroenterology 10/30/16
--- OUTSIDE RECORDS SUMMARY | 2025-03-14 12:40 | XMS_ITS | Clinical Summary ---
Author Organization [facility] Address [address] [facility] [place] [address] Care Team Providers Care Voicer Name Role Phone Negrito Angel Primary Care Provider [phone] Allergies Active Allergy Reactions Criticality Noted Date [...] Mass Index 32.12 12/25/2015 10:50 AM EDT Plan of Treatment Health Maintenance Due Date Last Done Comments Hepatitis C Screening 1950 DTap,Tdap,and Td (1 - Tdap) 1961 Mammogram Screening 1990 Colonoscopy 1995 Pneumococcal 50+ (1 of 1 - PCV) 2000 Shingrix (#1) 2000 DEXA Scan 2015 Influenza Vaccine (Season Ended) 2025 RSV Vaccine (60+ or ) (1 - 1-dose 75+ series) 2025 HPV Aged Out No longer eligi ble based on patient's age to complete this topic Meningococcal conjugate mouna nt 4 (MCV4) Aged Out No longer eligible b ased on patient's age to complete this topic RSV Immunization (<20 months) Aged Out No longer eligible based on patient's age to complete this topic Insurance [facility] MEDICARE on file Care Teams Voicer Relationship Specialty Start Date End Date Negrito Angel [address] [place] [address] PCP - General 11/13/15
--- OUTSIDE RECORDS SUMMARY | 2025-03-14 12:40 | XMS_ITS | Encounter Summary ---
Author Organization [place] [address] Care Team Providers Care Real Estate Sales Agent Name Role Phone Christianne Angel Primary Care Provider [phone] Yogi Torres MD Unavailable [phone] Robert Renee MD Unavailable Unavailable Encounter Details Date Type Department Care Team (Late st Contact Info) Description 02/19/2025 Orders Only [facility] [place] [address] [place], [place] [id number] Judith Camara, ARCHA[place] Coronary artery disease involving [place] coronary artery of [place] heart without angina pectoris; Essential hypertension Social History Tobacco Use Types Packs/Day Years [...] on file documented as of this encounter Ordered Prescriptions Prescription Sig Dispense Quantity Refills Last Filled Start Date End Date amLODIPine (NORVASC) 5 mg Oral TabletIndications:C oronary artery disease involving [place] coronary artery of [place] heart without angina pectoris,Essential hypertension Take 1 Tablet by mouth daily. 90 Tablet 1 02/19/2025 documented in this encounter Plan of Treatment Upcoming Encounters Date Type Department Care Team (Late st Contact Info) Description 05/16/2025 2:00 PM EDT Office Visit [facility] [place] [address] [place] [address] Diandra Morris PA-C [address] [place] [address] 06/06/2025 1:45 PM EDT Office Visit [facility] [address] [place] [address] Yogi Torres MD [address] [place] [address] [place] [address] 07/11/2025 1:45 PM EDT Office Visit [facility] [address] [address] Josr Mohamud MD [address] [address] documented as of this encounter Visit Diagnoses Diagnosis Coronary artery disease involving [place] coronary artery of [place] heart without angina pectoris Essential hypertension Unspecified essential hypertension documented in this encounter Discontinued Medications Medication Sig Discontinue Reason Start Date End Da te amLODIPine (NORVASC) 5 mg Oral TabletIndications:Coronar y artery disease involving [place] coronary artery of [place] heart without angina pectoris,Essential hypertension Take 1 Tablet by mouth daily. TAKE 1/2 TABLET (2.5 MG) BY MOUTH DAILY OR 1 TAB (5 MG) EVERY OTHER DAY 02/19/2025 02/19/2025 documented as of this encounter Care Teams Real Estate Sales Agent Relationship Specialty Start Date End Date Christianne Angel [address] [facility] [address] [facility] [place] [address] PCP - General 02/26/11 Yogi Torres MD [address] [place] [address] [place] [address] Physician Internal Medicine-Cardiovascular Disease 02/11/12 Robert Renee MD [address] [place] [address] [place] [address] Physician Internal Medicine-Gastroenterology 10/30/16 documented as of this encounter
--- OUTSIDE RECORDS SUMMARY | 2025-03-14 12:40 | XMS_ITS | Encounter Summary ---
Author Organization [place] [address] Care Team Providers Care Folder Machine Operator Name Role Phone Christianne Angel Primary Care Provider [phone] Yogi Torres MD Unavailable [phone] Robert Renee MD Unavailable Unavailable Reason for Visit * Reason Onset Date Comments Patient Question 02/08/2025 Encounter Details Date Type Department Care Team (Late st Contact Info) Description 02/08/2025 Telephone [facility] [place] [address] [place], [place] [phone] Yogi Torres MD [address] [place] [address] Patient Question Social History Tobacco Use Types Packs/Day [...] encounter Miscellaneous Notes * Telephone Encounter - Karissa Sheridan MA - 02/08/2025 9:03 AM EDT [employer] message sent to pt with MD response. * Telephone Encounter - Yogi Torres MD - 02/08/2025 8:56 AM EDT Topical E is fine and safe * Telephone Encounter - Judith Camara CMA - 02/08/2025 8:29 AM EDT Pt sent [employer] message: My urogynecologist is wanting to start me on a topical estrogen and want to get your approval before she prescribes it documented in this encounter Plan of Treatment Upcoming Encounters Date Type Department Care Team (Late st Contact Info) Description 05/16/2025 2:00 PM EDT Office Visit [facility] [address] [address] Diandra Morris PA-C [address] [place] [address] 06/06/2025 1:45 PM EDT Office Visit [facility] [address] [place] [address] Yogi Torres MD [address] [place], [place] [phone] 07/11/2025 1:45 PM EDT Office Visit [facility] [place] [address] [address] Josr Mohamud MD [address] [address] documented as of this encounter Visit Diagnoses Not on filedocumented in this encounter Care Teams Folder Machine Operator Relationship Specialty Start Date End Date Christianne Angel [address] [place] [address] PCP - General 02/26/11 Yogi Torres MD [address] [place] [address] [place] [address] Physician Internal Medicine-Cardiovascular Disease 02/11/12 Robert Renee MD [address] [place] [address] [place] [address] Physician Internal Medicine-Gastroenterology 10/30/16 documented as of this encounter
--- OUTSIDE RECORDS SUMMARY | 2025-03-14 12:40 | XMS_ITS | Encounter Summary ---
Author Organization [place] [address] Care Team Providers Care Operation Agent Name Role Phone Christianne Angel Primary Care Provider [phone] Yogi Torres MD Unavailable [phone] Robert Renee MD Unavailable Unavailable Reason for Visit * Reason Comments Medication Refill Encounter Details Date Type Department Care Team (Late st Contact Info) Description 03/13/2025 Refill [facility] [place] [address] [place], [place] [phone] Yogi Torres MD [address] [place] [address] Medication Refill Social History Tobacco Use Types Packs/Day Years [...] Encounters Date Type Department Care Team (Late Contact Info) Description 05/16/2025 2:00 PM EDT Office Visit [facility] [place] [address] [place] [address] Diandra Morris PA-C [address] [place] [place] [address] 06/06/2025 1:45 PM EDT Office Visit [facility] [address] [place] [address] Yogi Torres MD [address] [place] [address] [place] [address] 07/11/2025 1:45 PM EDT Office Visit [facility] [address] [address] Josr Mohamud MD [address] [address] documented as of this encounter Visit Diagnoses Diagnosis Essential hypertension Unspecified essential hypertension documented in this encounter Care Teams Operation Agent Relationship Specialty Start Date End Date Christianne Angel [address] [place], [place] [phone] PCP - General 02/26/11 Yogi Torres MD [address] [place] [address] Physician Internal Medicine-Cardiovascular Disease 02/11/12 Robert Renee MD [address] [place] [address] [place] [address] Physician Internal Medicine-Gastroenterology 10/30/16 documented as of this encounter
--- OUTSIDE RECORDS SUMMARY | 2025-03-14 12:40 | XMS_ITS | Encounter Summary ---
Author Organization [place] [address] Care Team Providers Care Garnett Machine Operator Helper Name Role Phone Christianne Angel Primary Care Provider [phone] Yogi Torres MD Unavailable [phone] Robert Renee MD Unavailable Unavailable Reason for Visit * Reason Onset Date Comments Medication Refill 02/18/2025 Encounter Details Date Type Department Care Team (Late st Contact Info) Description 02/18/2025 Refill [facility] [address] [place] [address] Yogi Torres MD [address] [place], [place] [id number] Medication Refill Social History Tobacco Use Types [...] End Date amLODIPine (NORVASC) 5 mg Oral TabletIndications: 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 TAKE 1/2 TABLET (2.5 MG) BY MOUTH DAILY OR 1 TAB (5 MG) EVERY OTHER DAY 90 Tablet 1 02/19/2025 02/19/2025 documented in this encounter Plan of Treatment Upcoming Encounters Date Type Department Care Team (Late st Contact Info) Description 05/16/2025 2:00 PM EDT Office Visit [facility] [address] [place] [address] Diandra Morris PA-C [address] [place] [address] 06/06/2025 1:45 PM EDT Office Visit [facility] [address] [place] [address] Yogi Torres MD [address] [place] [address] 07/11/2025 1:45 PM EDT Office Visit Francisco Javier [place] [address] [address] Jors Mohamud MD [address] [id number] documented as of this encounter Visit Diagnoses Diagnosis 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 TAKE 1/2 TABLET (2.5 MG) BY MOUTH DAILY OR 1 TAB (5 MG) EVERY OTHER DAY Reorder 11/29/2024 02/18/2025 documented as of this encounter Care Teams Garnett Machine Operator Helper Relationship Specialty Start Date End Date Christianne Angel [address] [facility] [address] [place] [address] PCP - General 02/26/11 Yogi Torres MD [address] [facility] [place] [address] Physician Internal Medicine-Cardiovascular Disease 02/11/12 Robert Renee MD [address] [facility] [place] [address] Physician Internal Medicine-Gastroenterology 10/30/16 documented as of this encounter
[2025-03-15 07:30] LABS: Hepatitis B Surface Antigen Negative (Negative)
== END 2025-03-13 23:59 | disposition home or self-care (01) ==
LOC: LAB.DROPOF 03-14 12:38
PROVIDERS: PCP Nurse Practitioner; Visit Provider Nurse Practitioner
DX: I25.10 Atherosclerotic heart disease of native coronary artery without angina pectoris (principal); E11.9 Type 2 diabetes mellitus without complications; E78.5 Hyperlipidemia, unspecified; I10 Essential (primary) hypertension; Z13.0 Encounter for screening for diseases of the blood and blood-forming organs and certain disorders involving the immune mechanism; Z11.59 Encounter for screening for other viral diseases; Z83.79 Family history of other diseases of the digestive system
CPT/HCPCS: 80053; 80061; 82043; 82570; 82607; 83036; 84443; 85025; 86803; 87340; 87389